=== PATIENT | female | born 1945 | race African-American/Black ===

== ENCOUNTER 2017-11-29 06:11 | Inpatient (IN) | payer MEDICARE ==
[~2017-11-29] VITALS: Ht 165.1 cm; Wt 68.9 kg
[2017-11-29] MEDS ORDERED: METFORMIN HCL500 M1 ORAL (06:13)
[2017-11-29] MEDS ORDERED: Morphine Sulfate 4mg/ml Inj IVP ONE ×2 (06:30→10:00)
[2017-11-29 06:41] VITALS: BP 175/129
[2017-11-29 06:59] LABS: ANION GAP 16 mmol/L (5-15); BLOOD UREA NITROGEN 19 mg/dL (7-18); CARBON DIOXIDE 20 MMOL/L (21-32); CHLORIDE 102 MMOL/L (98-107); CREATININE 0.9 MG/DL (0.55-1.30); POTASSIUM 4.1 MMOL/L (3.5-5.1); SODIUM 138 MMOL/L (136-145)
[2017-11-29 07:02] LABS: BASOPHILS % (AUTO) 0.8 % (0.0-2.0); EOSINOPHILS % (AUTO) 0.8 % (0.0-3.0); HEMATOCRIT 44.5 % (37.0-47.0); HEMOGLOBIN 15.2 G/DL (12.0-16.0); LYMPHOCYTES % (AUTO) 24.4 % (20.0-45.0); MEAN CORPUSCULAR VOLUME 92 FL (80-99); MONOCYTES % (AUTO) 5.8 % (1.0-10.0); NEUTROPHILS % (AUTO) 68.3 % (45.0-75.0); PLATELET COUNT 345 K/UL (150-450); RED BLOOD COUNT 4.83 M/UL (4.20-5.40); RED CELL DISTRIBUTION WIDTH 11.9 % (11.6-14.8); WHITE BLOOD COUNT 17.7 K/UL (4.8-10.8)
[2017-11-29 07:04] LABS: ALANINE AMINOTRANSFERASE 37 U/L (12-78); ALBUMIN 3.9 G/DL (3.4-5.0); ALKALINE PHOSPHATASE 79 U/L (46-116); ASPARTATE AMINO TRANSFERASE 28 U/L (15-37); BILIRUBIN,TOTAL 0.3 MG/DL (0.2-1.0)
[2017-11-29] MEDS ORDERED: Metoclopramide 10mg/2ml Inj IVP ONE (07:15)
[2017-11-29] MEDS ORDERED: Sodium Chloride 500ML 500 ML IV ONE (07:15)
[2017-11-29] MEDS ORDERED: Haloperidol 5mg/ml Inj IM ONE (07:15)
[2017-11-29] MEDS ORDERED: Ketorolac 30mg Inj IV ONE (07:15)
--- NOTE | 2017-11-29 07:20 | Emergency Room Report ---
History of Present Illness General Chief Complaint: Abdominal Pain Source: Patient Present Illness HPI Patient is a 72-year-old female presented after increased right lower abdominal pain. Patient had sudden onset of symptoms approximately 4:00 in the morning. The patient had reported sharp pain. This did not radiate. She had associated nausea. The pain was severe nature. She stated that she prior history of kidney stones. The patient also had prior pancreatic surgery for benign tumor. She reports having a tummy tuck last year. She denies any fever. She states she prior history of gastritis. Her previous medical care was at [facility]. She denies any dysuria. She denies any chest pain Allergies: Coded Allergies: No Known Allergies (Unverified , 11/29/17) Patient History Past Medical History: see triage record Last Menstrual Period: none Now: No Reviewed Nursing Documentation: PMH: Agreed, PSxH: Agreed Review of Systems All Other Systems: negative except mentioned in HPI Physical Exam Vital Signs Date Time Temp Pulse Resp B/P (MAP) Pulse Ox O2 Delivery O2 Flow Rate FiO2 11/29/17 06:08 98.1 69 18 145/91 100 Room Air Sp02 EP Interpretation: reviewed, normal General Appearance: normal inspection, well appearing, alert, GCS 15, mild distress Head: atraumatic ENT: normal ENT inspection, hearing grossly normal, normal voice Neck: normal inspection, full range of motion, supple, no bony tend Respiratory: normal inspection, lungs clear, normal breath sounds, no respiratory distress, no retraction, no wheezing Cardiovascular #1: regular rate, rhythm, no edema Gastrointestinal: normal inspection, normal bowel sounds, tenderness - right lower abdomen Genitourinary: no CVA tenderness Musculoskeletal: normal inspection, back normal, normal range of motion Neurologic: normal inspection, alert, oriented x3, responsive, guard chief III-XII nml as tested, speech normal Psychiatric: normal inspection, judgement/insight normal, mood/affect normal Skin: normal inspection, normal color, no rash Medical Decision Making Diagnostic Impression: Primary Impression: Abdominal pain Additional Impressions: Hypertension Renal stone Hydronephrosis QT prolongation ER Course Patient presented for abdominal pain. Differential diagnoses included ischemic bowel, appendicitis, perforated viscus, abdominal aortic aneurysm, inferior myocardial infarction, viral gastroenteritis Because of complexity of patient's case laboratory testing and imaging studies were ordered. The patient was given IV fluids as well as IV pain medications. EKG interpreted by me showed normal sinus rhythm with a rate of 65 QT was noted to be somewhat prolonged at [address] there were [address] acute [address] or T wave changes noted. Ultrasound imaging was initially ordered.The patient was given IV lidocaine for pain. The QT was noted be somewhat prolonged an EKG and so she was given IV magnesium. Dr. Hemal Patel was contacted for inpatient management due to panel physician. Dr. Mehrdad Guadalupe was contacted for urology consult. Labs Test 11/29/17 06:20 White Blood Count 17.7 K/UL (4.8-10.8) Red Blood Count 4.83 M/UL (4.20-5.40) Hemoglobin 15.2 G/DL (12.0-16.0) Hematocrit 44.5 % (37.0-47.0) Mean Corpuscular Volume 92 FL (80-99) Mean Corpuscular Hemoglobin 31.6 PG (27.0-31.0) Mean Corpuscular Hemoglobin Concent 34.3 G/DL (32.0-36.0) Red Cell Distribution Width 11.9 % (11.6-14.8) Platelet Count 345 K/UL (150-450) Mean Platelet Volume 6.9 FL (6.5-10.1) Neutrophils (%) (Auto) 68.3 % (45.0-75.0) Lymphocytes (%) (Auto) 24.4 % (20.0-45.0) Monocytes (%) (Auto) 5.8 % (1.0-10.0) Eosinophils (%) (Auto) 0.8 % (0.0-3.0) Basophils (%) (Auto) 0.8 % (0.0-2.0) Prothrombin Time 10.4 SEC (9.30-11.50) Prothromb Time International Ratio 1.0 (0.9-1.1) Activated Partial Thromboplast Time 23 SEC (23-33) Sodium Level 138 MMOL/L (136-145) Potassium Level 4.1 MMOL/L (3.5-5.1) Chloride Level 102 MMOL/L (98-107) Carbon Dioxide Level 20 MMOL/L (21-32) Anion Gap 16 mmol/L (5-15) Blood Urea Nitrogen 19 mg/dL (7-18) Creatinine 0.9 MG/DL (0.55-1.30) Estimat Glomerular Filtration Rate mL/min (>60) Glucose Level 231 MG/DL (74-106) Calcium Level 9.0 MG/DL (8.5-10.1) Total Bilirubin 0.3 MG/DL (0.2-1.0) Aspartate Amino Transf (AST/SGOT) 28 U/L (15-37) Alanine Aminotransferase (ALT/SGPT) 37 U/L (12-78) Alkaline Phosphatase 79 U/L (46-116) Troponin I 0.000 ng/mL (0.000-0.056) Total Protein 7.7 G/DL (6.4-8.2) Albumin 3.9 G/DL (3.4-5.0) Globulin 3.8 g/dL Albumin/Globulin Ratio 1.0 (1.0-2.7) Lipase 150 U/L (73-393) EKG Diagnostic Results Rate: normal Rhythm: NSR ST Segments: no acute changes Rhythm Strip Diag. Results EP Interpretation: yes Rhythm: NSR, no PVC's, other - pacs Last Vital Signs Date Time Temp Pulse Resp B/P (MAP) Pulse Ox O2 Delivery O2 Flow Rate FiO2 11/29/17 06:41 98.1 66 17 175/129 97 Room Air Status: improved Disposition: ADMITTED INPATIENT Condition: Serious Referrals: NON PHYSICIAN (PCP) Bhargav Villatoro Nov 29, 2017 07:20
[2017-11-29] MEDS ORDERED: Lidocaine 2% 100mg/5ml Carp IV ONE (07:30)
[2017-11-29 08:42] LABS: APPEARANCE,URINE CLEAR; BILIRUBIN, URINE NEGATIVE (NEGATIVE); COLOR,URINE PALE YELLOW; GLUCOSE, URINE (UA) 3+ (NEGATIVE); KETONES,URINE 1+ (NEGATIVE); LEUKOCYTE ESTERASE ,URINE NEGATIVE (NEGATIVE); NITRITE,URINE NEGATIVE (NEGATIVE); PH,URINE 7 (4.5-8.0); PROTEIN,URINE NEGATIVE (NEGATIVE); UROBILINOGEN,URINE NORMAL MG/DL (0.0-1.0)
[2017-11-29 08:57] VITALS: BP 170/81
[2017-11-29] MEDS ORDERED: cefTRIAXone 1 GM in NS 55 ML IVPB ONE (09:15)
[2017-11-29 09:23] VITALS: BP 123/86
[2017-11-29 10:19] VITALS: BP 156/77
[2017-11-29 10:30] VITALS: BP 149/75
--- NOTE | 2017-11-29 12:04 | History & Physical ---
History and Physical History & Physicial HPI 72-year-old female presented presents with increased right lower abdominal pain. Patient had sudden onset of symptoms approximately 4:00 in the morning. The patient had reported sharp pain in the right flank region. This did not radiate down to the bladder. She had associated nausea. The pain was severe nature and very acute. She stated that she has had prior history of kidney stones and prior cystoscopy and urology evaluation. She denies any fever. She denies any dysuria. She denies any chest pain Allergies: No Known Allergies (Unverified , 11/29/17) Past Medical History: bladder stones, gastritis, hypertension, diabetes Past surgical history: pancreatic surgery for benign tumor, tummy tuck Reviewed of systems: all 10 points reviewed and negative Physical exam WDWN NAD clear breath sounds bilaterally without rhonchi or wheeze [id number] without MRG NABS nontender no HSM no CCE nonfocal Laboratory Tests Test 11/29/17 06:20 11/29/17 08:00 White Blood Count 17.7 K/UL (4.8-10.8) H Red Blood Count 4.83 M/UL (4.20-5.40) Hemoglobin 15.2 G/DL (12.0-16.0) Hematocrit 44.5 % (37.0-47.0) Mean Corpuscular Volume 92 FL (80-99) Mean Corpuscular Hemoglobin 31.6 PG (27.0-31.0) H Mean Corpuscular Hemoglobin Concent 34.3 G/DL (32.0-36.0) Red Cell Distribution Width 11.9 % (11.6-14.8) Platelet Count 345 K/UL (150-450) Mean Platelet Volume 6.9 FL (6.5-10.1) Neutrophils (%) (Auto) 68.3 % (45.0-75.0) Lymphocytes (%) (Auto) 24.4 % (20.0-45.0) Monocytes (%) (Auto) 5.8 % (1.0-10.0) Eosinophils (%) (Auto) 0.8 % (0.0-3.0) Basophils (%) (Auto) 0.8 % (0.0-2.0) Prothrombin Time 10.4 SEC (9.30-11.50) Prothromb Time International Ratio 1.0 (0.9-1.1) Activated Partial Thromboplast Time 23 SEC (23-33) Sodium Level 138 MMOL/L (136-145) Potassium Level 4.1 MMOL/L (3.5-5.1) Chloride Level 102 MMOL/L (98-107) Carbon Dioxide Level 20 MMOL/L (21-32) L Anion Gap 16 mmol/L (5-15) H Blood Urea Nitrogen 19 mg/dL (7-18) H Creatinine 0.9 MG/DL (0.55-1.30) Estimat Glomerular Filtration Rate mL/min (>60) Glucose Level 231 MG/DL (74-106) H Calcium Level 9.0 MG/DL (8.5-10.1) Total Bilirubin 0.3 MG/DL (0.2-1.0) Aspartate Amino Transf (AST/SGOT) 28 U/L (15-37) Alanine Aminotransferase (ALT/SGPT) 37 U/L (12-78) Alkaline Phosphatase 79 U/L (46-116) Troponin I 0.000 ng/mL (0.000-0.056) Total Protein 7.7 G/DL (6.4-8.2) Albumin 3.9 G/DL (3.4-5.0) Globulin 3.8 g/dL Albumin/Globulin Ratio 1.0 (1.0-2.7) Lipase 150 U/L (73-393) Urine Color Pale yellow Urine Appearance Clear Urine pH 7 (4.5-8.0) Urine Specific Denio 1.010 (1.005-1.035) Urine Protein Negative (NEGATIVE) Urine Glucose (UA) 3+ (NEGATIVE) H Urine Ketones 1+ (NEGATIVE) H Urine Occult Blood 5+ (NEGATIVE) H Urine Nitrite Negative (NEGATIVE) Urine Bilirubin Negative (NEGATIVE) Urine Urobilinogen Normal MG/DL (0.0-1.0) Urine Leukocyte Esterase Negative (NEGATIVE) Urine RBC 20-30 /HPF (0 - 2) H Urine WBC 0-2 /HPF (0 - 2) Urine Squamous Epithelial Cells Few /LPF (NONE/OCC) Urine Bacteria Few /HPF (NONE) IMPRESSION leukocytosis possible cystitis possible renal stone diabetes hypertension PLAN hydrate antibiotics urology called to see patient strain urine consider intervention renal US pain control impression, plan, and exam edited and reviewed in detail care discussed with CARLOS NAVARRETE Nov 29, 2017 12:04
[2017-11-29] MEDS ORDERED: Morphine Sulfate 4mg/ml Inj IVP PRN (12:15)
[2017-11-29] MEDS ORDERED: Zolpidem 5mg tab ORAL PRN (12:15)
[2017-11-29] MEDS ORDERED: Norco 5mg/325mg tab ORAL PRN ×2 (12:15)
[2017-11-29] MEDS ORDERED: Ketorolac 30mg Inj IV SCH (13:00)
[2017-11-29 16:00] VITALS: BP 130/70
[2017-11-29] MEDS ORDERED: NS 275ml ONE (16:44)
[2017-11-29] MEDS ORDERED: Tubing IV Secondary IV ONE (16:44)
--- NOTE | 2017-11-29 17:31 | Consultation ---
DATE OF CONSULTATION: 11/29/2017 UROLOGY CONSULTATION CONSULTING PHYSICIAN: Mehrdad Guadalupe M.D. ATTENDING/REFERRING PHYSICIAN: Hemal Patel M.D. CHIEF COMPLAINT AND HISTORY OF PRESENT ILLNESS: I was asked by Dr. Patel to evaluate this pleasant 72-year-old female regarding history of possible right kidney/ureteral stone with pain secondary to same. Briefly, the patient has history of kidney stones with a previous left ureteroscopy and laser lithotripsy for removal of the stone by Dr. Simons. She had this done approximately two years ago. She was doing well from a standpoint until she developed right-sided abdominal and flank pain early this morning and this was associated with nausea, vomiting, and some subjective sweating. The patient presented to the emergency room where an ultrasound revealed right hydronephrosis. There was no CT scan availability at this time. She was admitted and I was asked to evaluate the patient. PAST MEDICAL HISTORY: 1. Nephrolithiasis. 2. Benign pancreatic tumor. 3. Gastritis. 4. Hypertension. 5. Presumed diabetes mellitus. PAST SURGICAL HISTORY: 1. Left ureteroscopy with laser lithotripsy and double-J stent. 2. Pancreatic surgery, NOS. 3. Tummy tuck in 2016. MEDICATIONS: Please see chart for current medications and administration details. ALLERGIES: No known drug allergies. SOCIAL HISTORY: Unremarkable for tobacco, alcohol, or drug use. FAMILY HISTORY: Noncontributory. REVIEW OF SYSTEMS: A 12-system review of systems was essentially unremarkable outside of what is described above. PHYSICAL EXAMINATION: GENERAL: The patient is an older female, awake, alert, pleasant, oriented x4, in no obvious distress. HEENT: NC/AT. EOMI. Oropharynx clear. NECK: Supple. Full range of motion. CHEST: Within normal limits. ABDOMEN: Soft, flat, nontender, nondistended. EXTREMITIES: Warm and well perfused. No cyanosis, clubbing, or edema. BACK: Mild right CVA tenderness to percussion. NEUROLOGIC: Nonfocal. LABORATORY DATA: White blood cell count 17.7, hematocrit 44.5, and platelets 345,000. PT 10.4, INR 1.0, and PTT 23. Urinalysis, specific gravity 1.010, pH 7.0. Dip test notable for 3+ glucose, 1+ ketones, and 5+ occult blood. Microanalysis showed 20-30 red blood cells per high-powered field only. Sodium 138, potassium 4.1, chloride 102, bicarbonate 20, BUN 19, creatinine 0.9, glucose 231, and calcium 9.0. LFTs within normal limits. DIAGNOSTIC IMAGING: Abdominal ultrasound with moderate hydronephrosis. ASSESSMENT AND PLAN: In summary, the patient is a 72-year-old female with history of known nephrolithiasis, status post previous surgical intervention for the same in the past. She presented with right-sided abdominal and flank pain consistent with renal colic. An ultrasound revealed hydronephrosis and physical exam reveals right costovertebral angle tenderness. There is no CT scan available at this time. Laboratory data is notable for an elevated white blood cell count and microhematuria. I discussed these findings today with the patient at the bedside. Her pain is significantly better than it was before. I discussed the options of sending her home and having her follow up with her regular urologist this coming week with a CT scan to evaluate the stone and whether or not it would pass naturally versus the need for further intervention versus the other option of staying here and having a double-J stent placed if her pain was uncontrolled. She feels significantly better and is leaning towards the former rather than the latter. If she changes her mind this afternoon and has worsening pain, we will plan for cystoscopy with double-J stent tomorrow, otherwise likely we will discharge the patient home this afternoon. Thank you for allowing me to participate in the care of this nice lady. Please do not hesitate to contact me with questions that you may further have regarding her care. I will continue to see her with you as needed. Mehrdad Guadalupe M.D. DR: CHRISTINA JOB#: [id number] CC:
[2017-11-29] MEDS ORDERED: metFORMIN 500mg tab ORAL SCH (18:00)
[2017-11-29] MEDS ORDERED: Cefepime HCl 1 GM in D5W 55 ML IVPB SCH (21:00)
--- NOTE | 2017-11-30 07:58 | Diagnostic Imaging Report ---
Indication: Pain Technique: US ABD Complete, US Renal, US Pelvic Complete; US renal; US pelvic. 1. Multiplanar grayscale and color Doppler imaging of the abdomen. 2. Multiplanar grayscale and color Doppler imaging of the kidneys and bladder. 3. Transabdominal imaging of the pelvis. Comparison: None Findings: Abdomen ultrasound: Imaged portions of the pancreatic head are unremarkable in appearance. The body and tail are not well seen. The liver is enlarged, with the right lobe measuring 18 cm in length. There is diffuse increased hepatic echogenicity. No focal hepatic mass lesion is appreciated sonographically. Main portal vein is patent with normal direction of flow. Common bile duct measures 3.4 mm in diameter. Gallbladder is unremarkable in appearance. No gallbladder wall thickening or pericholecystic fluid. Spleen not imaged. Imaged portions of the aorta and IVC are normal in caliber. Renal/bladder ultrasound: Right kidney measures 14.8 cm in length. There is moderate right-sided hydronephrosis. Parenchymal echogenicity is normal. Normal color flow to the right kidney is seen. No definite urinary tract stone is identified. Left kidney measures 11.2 cm in length. It demonstrates normal parenchymal thickness and echogenicity. There is no left-sided hydronephrosis. Normal color flow to the left kidney is seen. Bladder is unremarkable in appearance. Suggestion of ureteral jets however not definite. US pelvis (transabdominal): Limited exam due to patient body habitus and lack of transvaginal imaging. Uterus measures approximately 9.8 x 3.4 x 4.6 cm. Apparent hypodense mass at the uterine fundus measures 3 x 3.2 x 1.9 cm. In the terminal well evaluated. Bilateral ovaries are not seen. COMBINED IMPRESSION: Renal ultrasound: * Moderate right-sided hydronephrosis. No definite sonographically appreciable renal stone on the right. * No left-sided hydronephrosis. * Bladder grossly unremarkable. Abdomen ultrasound: * Diffusely increased hepatic echogenicity most commonly reflective of hepatic steatosis. Additional hepatocellular diseases should be excluded clinically. * Mild hepatomegaly Pelvic ultrasound (transabdominal only): Limited evaluation due to lack of transvaginal exam and patient body habitus. * Apparent hypodense mass at the uterine fundus measuring up to 3.2 cm. This may potentially represent a fibroid however additional etiologies are not entirely excluded. Better characterization with transvaginal ultrasound or MRI of the pelvis recommended. * Bilateral ovaries not visualized.
--- NOTE | 2017-12-03 11:00 | Discharge Summary ---
Discharge Summary Hospital Course Date of Admission Nov 29, 2017 at 07:52 Date of Discharge Nov 29, 2017 at 16:45 Admitting Diagnosis Abdominal pain HPI Tiff Natarajan is a 72 year old female who was admitted on Nov 29, 2017 at 07:52 for Abdominal Pain Hospital Course dc summary #[id number] Discharge Discharge Disposition Patient signed AMA Discharge Diagnoses: Discharge Instructions Discharge Instructions Special Instructions I have been assigned to complete a D/C Summary on this account. I was not involved in the patient management Paula Zepeda NP (Vanchtein) Dec 03, 2017 11:00
--- NOTE | 2017-12-03 16:45 | Discharge Summary 2 SIG ---
DATE OF ADMISSION: 11/29/2017 DATE OF SIGNING AGAINST MEDICAL ADVISE : 11/29/2017 REASON FOR ADMISSION: 72-year-old female with past medical history of nephrolithiasis, benign pancreatic tumor, status post surgery, gastritis, hypertension, presumed diabetes mellitus presented to emergency department with complaint of right-sided abdominal pain and flank pain. The patient reported severe pain, nonradiating , with sudden onset. Workup in the emergency room revealed blood pressure -145/91, otherwise vital signs were stable. Renal ultrasound revealed moderate right-sided hydronephrosis. No definite sonographically appreciated renal stone on the right. No left-sided hydronephrosis. Bladder grossly unremarkable. Abdominal ultrasound revealed diffusely increased hepatic echogenicity, most commonly reflective of hepatic steatosis, mild hepatomegaly. Pelvic ultrasound revealed apparent hyperdense mass in the uterine fundus, potentially representing fibroid. Other etiology was not entirely excluded. EKG showed somehow prolonged QT interval. Patient was given IV magnesium. WBC -17.7, otherwise renal parameters, electrolytes, hemoglobin, hematocrit, liver enzymes, and lipase were all within normal limits. The patient was admitted with diagnosis of abdominal pain, hydronephrosis, possible renal stone, hypertension and QT prolongation. HOSPITAL COURSE: The patient was admitted. The patient was started on the IV hydration. The patient was started on empiric antibiotics. Urology consult was requested. All urine was strained. Pain management provided. Blood sugar was managed with metformin. Gastrointestinal prophylaxis provided. Blood pressure was managed with existing regimen. Urology seen and evaluated the patient. Later during the day, the patient was feeling better. Pain significantly improved. According to urologist, the patient clinical presentation with right-sided abdominal and flank pain was consistent with renal colic. Physical exam revealed positive costovertebral angle tenderness and no CT scan was available at that time. Urologist discussed the findings and options available to her. She could be send home and follow up with her regular urologist in this coming week with CT scan to evaluate the stone whether she would pass it naturally versus need for further intervention. Another option would be staying in the hospital and had double-J stent placement if pain was uncontrolled. The patient felt significantly better and was leaning towards leaving. The patient declined to wait for the discharge order from the primary medical provider. The risks and consequences of signing against medical advice were discussed with the patient. The patient verbalized understanding, signed the form and left stating that she will follow up with her regular urologist this coming week. FINAL DIAGNOSES: 1. Renal colic. 2. Hydronephrosis. 3. Hypertension. 4. QT prolongation. 5. Diabetes. 6. Hypertension. Hemal Patel M.D. I have been assigned to dictate discharge summary on this account and I was not involved in the patient's management. Paula Zepeda (Vanchtein) N.PRadha DR: TODD JOB#: [id number] CC: MIKE
--- NOTE | 2017-12-03 19:31 | Cardiology Report ---
APPROVED REPORT EKG Measurement Heart [id number] Suspect arm lead reversal, interpretation assumes no reversal Normal sinus rhythm Rightward axis Borderline ECG
== END 2017-11-29 16:45 | disposition left against medical advice (07) | DRG 694 ==
LOC: EDBD 06:11 → EMR 06:31 → 3E 07:52 → EDBEDREQ 09:08 → 3E 14:18
DX: N13.2 Hydronephrosis with renal and ureteral calculous obstruction (principal); E11.9 Type 2 diabetes mellitus without complications; I45.81 Long QT syndrome; I10 Essential (primary) hypertension; D72.829 Elevated white blood cell count, unspecified; Z87.442 Personal history of urinary calculi; Z79.84 Long term (current) use of oral hypoglycemic drugs; Z53.21 Procedure and treatment not carried out due to patient leaving prior to being seen by health care provider
CPT/HCPCS: 36415; 76700; 76775; 76856; 80053; 81003; 82962; 83690; 84484; 85025; 85610; 85730; 93005; 99285; J2405; J2765